=== PATIENT | female | born 1965 ===

== ENCOUNTER 2019-02-21 18:31 | Emergency (ER) | payer OTHER ==
[2019-02-21] MEDS ORDERED: Sodium Chloride 0.9% 1,000 ML IV ONE (19:15)
--- NOTE | 2019-02-21 19:15 | C.PDOC ---
History Of Present Illness Patient presents to the ED c/o LLQ and suprapubic abdominal pain for the past week. Patient also reports having some dysuria however reports pain worsens when she stands up. Patient has histoyr of hysterectomy. Patient denies fever, chills, nausea, vomit, diarrhea, vaginal bleeding, vaginal discharge. Time Seen by Provider: 02/21/19 19:15 Chief Complaint (Nursing): Abdominal Pain History Per: Patient History/Exam Limitations: no limitations Onset/Duration Of Symptoms: Days Current Symptoms Are (Timing): Still Present Location Of Pain/Discomfort: LLQ, Suprapubic Radiation Of Pain To:: None Quality Of Discomfort: "Pain" Associated Symptoms: Urinary Symptoms. denies: Nausea Recent travel outside of the [place]: No Additional History Per: Patient Abnormal Vaginal Bleeding: No Past Medical History Reviewed: Historical Data, Nursing Documentation, Vital Signs Vital Signs: Last Vital Signs Temp 98.1 F 02/21/19 18:38 Pulse 95 H 02/21/19 18:38 Resp 18 02/21/19 18:38 BP 136/76 02/21/19 18:38 Pulse Ox 100 02/21/19 18:38 - Medical History PMH: No Chronic Diseases Other Surgeries: Hysterectomy Family History: States: Unknown Family Hx - Social History Hx Alcohol Use: No Hx Substance Use: No - Immunization History Hx Tetanus Toxoid Vaccination: No Hx Influenza Vaccination: No Hx Pneumococcal Vaccination: No Review Of Systems Constitutional: Negative for: Fever, Chills Cardiovascular: Negative for: Chest Pain Respiratory: Negative for: Shortness of Breath Gastrointestinal: Positive for: Abdominal Pain. Negative for: Vomiting, Diarrhea Genitourinary: Negative for: Dysuria, Vaginal Discharge, Vaginal Bleeding Musculoskeletal: Negative for: Back Pain Neurological: Negative for: Weakness, Numbness Physical Exam - Physical Exam Appears: Non-toxic, No Acute Distress Skin: Warm, Dry Head: Normacephalic Eye(s): bilateral: Normal Inspection Oral Mucosa: Moist Neck: Supple Chest: Symmetrical Cardiovascular: Rhythm Regular Respiratory: No Rales, No Rhonchi, No Wheezing Gastrointestinal/Abdominal: Soft, Tenderness (LLQ/ suprapubic), No Guarding, No Rebound, Hernia (small umbilical , reducible) Back: No CVA Tenderness Extremity: Bilateral: Atraumatic, Normal Color And Temperature, Normal ROM Neurological/Psych: Oriented x3, Normal Speech, Normal Cognition Gait: Steady ED Course And Treatment - Laboratory Results Result Diagrams: 02/21/19 19:50 02/21/19 19:50 O2 Sat by Pulse Oximetry: 100 (ON RA) Pulse Ox Interpretation: Normal Progress Note: Plan: - Labs. - UA. - IV fluids Medical Decision Making Medical Decision Making: Upon provider reevaluation patient is feeling better, is medically stable, and requires no further treatment in the ED at this time. Patient will be discharged home with Rx for flagyl . Counseling was provided and all questions were answered regarding diagnosis and need for follow up with the referred clinic. There is agreement to discharge plan. Return if symptoms persist or worsen. Disposition Counseled Patient/Family Regarding: Studies Performed, Diagnosis, Need For Followup, Rx Given - Disposition Referrals: [facility] [Outside] [facility] [Outside] Disposition: HOME/ ROUTINE Disposition Time: 19:15 Condition: FAIR Additional Instructions: Please return if symptoms recur Prescriptions: Metronidazole [Flagyl] 500 mg PO TID #21 tablet Instructions: Acute Abdomen (Belly Pain), Adult (DC), Kidney Stones (DC) Forms: [employer] ([place] Citizen) - Clinical Impression Clinical Impression: Abdominal pain, Enteritis, Kidney stone - Scribe Statement The provider has reviewed the documentation as recorded by the Scribe Jay Escobar All medical record entries made by the Scribe were at my direction and personally dictated by me. I have reviewed the chart and agree that the record accurately reflects my personal performance of the history, physical exam, medical decision making, and the department course for this patient. I have also personally directed, reviewed, and agree with the discharge instructions and disposition.
[2019-02-21 19:51] LABS: SQUAMOUS EPITHIAL < 1 /hpf (0-5); URINE BILIRUBIN NEGATIVE (NEGATIVE); URINE BLOOD 2+ (NEGATIVE); URINE CLARITY Clear (Clear); URINE COLOR Yellow (YELLOW); URINE GLUCOSE (UA) NORMAL (Normal); URINE LEUKOCYTE ESTERASE NEG Leu/uL (Negative); URINE PROTEIN NEGATIVE (NEGATIVE); URINE UROBILINOGEN NORMAL mg/dL (0.2-1.0)
[2019-02-21 19:54] LABS: BASO # 0.1 K/uL (0.0-0.2); BASO % 1.1 % (0.0-2.0); EOS # 0.1 K/uL (0.0-0.7); EOS % 1.2 % (0.0-4.0); HEMOGLOBIN 13.4 g/dL (11.0-16.0); LYMPH # 2.2 K/uL (1.0-4.3); LYMPH % 45.6 % (20.0-40.0); MEAN CELL VOLUME 87.4 fL (81.0-99.0); MEAN CORPUSCULAR HEMOGLOBIN 30.2 pg (27.0-31.0); MEAN CORPUSCULAR HGB CONC 34.6 g/dL (33.0-37.0); MEAN PLATELET VOLUME 7.6 fL (7.2-11.7); MONO # 0.5 K/uL (0.0-0.8); MONO % 10.6 % (0.0-10.0); NEUT % 41.5 % (50.0-75.0); RBC 4.42 Mil/uL (3.80-5.20); RED CELL DISTRIBUTION WIDTH 12.6 % (11.5-14.5); WHITE BLOOD COUNT 4.9 K/uL (4.8-10.8)
[2019-02-21 20:19] LABS: PROTHROMBIN TIME 11.2 SECONDS (9.7-12.2)
[2019-02-21 20:23] LABS: ALB/GLOB RATIO 1.5 (1.0-2.1); ALBUMIN 4.3 g/dL (3.5-5.0); ALT/SGPT 15 U/L (9-52); AST/SGOT 32 U/L (14-36); BLOOD UREA NITROGEN 11 mg/dL (7-17); CALCIUM 9.7 mg/dl (8.6-10.4); GFR NON-AFRICAN AMERICAN > 60; LIPASE 186 U/L (23-300)
[2019-02-21] MEDS ORDERED: Iodixanol 320 MG/ML 100 ML BOTTLE IV ONE (21:11)
[2019-02-21 22:52] VITALS: BP 132/82; PULSE 78; RESP 16; TEMP 98.2
[2019-02-21 23:14] VITALS: O2SAT 100
--- NOTE | 2019-02-22 11:27 | CT ---
CT abdomen and pelvis HISTORY: Abdominal pain. COMPARISON: None available. TECHNIQUE: Multiple contiguous axial images were performed through the abdomen and pelvis with the use of intravenous contrast. Subsequently, sagittal coronal reformatted images were obtained. This CT exam was performed using one or more of the following dose reduction techniques: Automated exposure control, adjustment of the mA and/or kV according to patient size, and/or use of iterative reconstruction technique. Findings: Mild atelectasis at the lung bases. No pleural or pericardial effusion. Liver is preserved. Contracted gallbladder. Spleen is preserved. Splenule. Adrenal glands are preserved. Pancreas is preserved. Few mildly thickened loops of small bowel in the upper abdomen. Clinical correlation. Right kidney: 6.5 millimeter calculus in the right renal pelvis best seen on series 3, image 66. No gross hydronephrosis. Additional 2.3 millimeter calculus in the lower pole of the right kidney. Left Kidney: No calculi or hydronephrosis. Calcified phleboliths in the pelvis. For example, a 3 millimeter calcification is noted adjacent to the right aspect of the urinary bladder. Patient status post hysterectomy. Moderate fecal retention in the colon. Appendix is visualized and is within normal limits. Few shotty para-aortic and inguinal lymph nodes. Fat and bowel containing hernia midline umbilical hernia. Degenerative changes in the spine. Degenerative changes with subchondral cyst formation noted within the right anterior acetabulum. Impression: 1. 6.5 millimeter calculus in the right renal pelvis best seen on series 3, image 66. No gross hydronephrosis. Additional 2.3 millimeter calculus in the lower pole of the right kidney. 2. Fat and bowel containing hernia midline umbilical hernia. 3. Few mildly thickened loops of small bowel in the upper abdomen. Clinical correlation. Additional findings as above. A preliminary report was generated at 11:08 p.m. on 02/21/[address] Tarun Gallegos from [employer].
== END 2019-02-21 23:29 | disposition home or self-care (01) ==
LOC: C.ER 18:31
DX: K52.9 Noninfective gastroenteritis and colitis, unspecified (principal); N20.0 Calculus of kidney; R10.32 Left lower quadrant pain
CPT/HCPCS: 74177; 80053; 81001; 83690; 84703; 85025; 85610; 85730; 96361; 96374; 99284; J1885; J7030; Q9967